=== PATIENT | female | born 1935 ===

== ENCOUNTER → 2018-08-19 19:25 | Outpatient (REF) | payer MEDICARE, BC, SELFPAY ==
[2018-08-19 20:26] LABS: Estimated Glomerular Filt Rate > 60.0 mL/min (>60)
== END ==
LOC: LAB 19:25
PROVIDERS: Visit Provider Family Medicine
DX: E88.81 Metabolic syndrome and other insulin resistance (principal)
CPT/HCPCS: 36415; 82565